=== PATIENT | female | born 1975 | race Caucasian/White ===

== ENCOUNTER 2018-01-12 03:02 | Inpatient (IN) | payer MEDICAID ==
[~2018-01-12] VITALS: Ht 179.1 cm; Wt 77.0 kg
[2018-01-12] MEDS ORDERED: ALBUTEROL/IPRATROPIUM 2.5MG/0.5MG, 3 ML NPPB ONE ×2 (03:30→05:00)
[2018-01-12] MEDS ORDERED: ALBUTEROL/IPRATROPIUM 2.5MG/0.5MG, 3 ML ONE ×2 (03:38→04:27)
[2018-01-12] MEDS ORDERED: ALBU0.63 NEB (03:47)
[2018-01-12 03:58] LABS: ALANINE AMINOTRANSFERASE 26 U/L (12-78); ALBUMIN 3.4 g/dL (3.4-5.0); ANION GAP 6 mmol/L (5-15); CALCIUM 8.9 mg/dL (8.5-10.1); CHLORIDE 109 mmol/L (98-107); CREATININE 0.85 mg/dL (0.55-1.02)
[2018-01-12 04:00] LABS: ALKALINE PHOSPHATASE 106 U/L (45-117); BILIRUBIN,TOTAL 0.3 mg/dL (0.2-1.0)
[2018-01-12 04:05] LABS: BASOPHILS # (AUTO) 0.05 x10^3/uL (0-0.1); BASOPHILS % (AUTO) 1 % (0-1); EOSINOPHILS # (AUTO) 0.15 x10^3/uL (0-0.4); EOSINOPHILS % (AUTO) 2 % (1-7); LYMPHOCYTES # (AUTO) 3.47 x10^3/uL (1-3.4); LYMPHOCYTES % (AUTO) 33 % (22-44); MD NO; MEAN CORPUSCULAR HEMOGLOBIN 33.9 pg (27.0-34.8); MEAN CORPUSCULAR HGB CONC 34.5 g/dL (32.4-35.8); MEAN CORPUSCULAR VOLUME 98.3 fL (80-100); MEAN PLATELET VOLUME 8.8 fL (7.4-10.4); MONOCYTES # (AUTO) 0.73 x10^3/uL (0.2-0.8); MONOCYTES % (AUTO) 7 % (2-9); NEUTROPHILS # (AUTO) 6.12 x10^3/uL (1.8-6.8); NEUTROPHILS % (AUTO) 58 % (42-75); PLATELET COUNT 261 x10^3/uL (130-400); RED BLOOD COUNT 4.88 x10^6/uL (3.82-5.3); RED CELL DISTRIBUTION WIDTH 14.5 % (9.6-15.2)
[2018-01-12] MEDS ORDERED: SODIUM CHLORIDE 0.9% 1,000 ML IV ONE (05:12)
[2018-01-12] MEDS ORDERED: ONDANSETRON 2MG/ML, 2ML IVPush PRN ×2 (05:30→06:30)
[2018-01-12] MEDS ORDERED: LORazepam 1MG TABLET PO PRN ×3 (06:30)
[2018-01-12] MEDS ORDERED: ENALAPRILAT 1.25 MG/ML, 2ML IVPush PRN (06:30)
[2018-01-12] MEDS ORDERED: morphine SULFATE 10 MG/ML, 1ML IVPush PRN (06:30)
[2018-01-12] MEDS ORDERED: OXYcodone IR 5MG TABLET PO PRN (06:30)
[2018-01-12] MEDS ORDERED: LORazepam 2 MG/ML, 1ML IV PRN ×5 (06:30)
[2018-01-12] MEDS: ALBUTEROL/IPRATROPIUM 2.5MG/0.5MG, 3 ML NPPB SCH ×4 (06:30→20:18)
[2018-01-12] MEDS ORDERED: ACETAMINOPHEN 325 MG TABLET PO PRN (06:30)
[2018-01-12] MEDS ORDERED: POLYETHYLENE GLYCOL 17 GM PACKET PO PRN (06:30)
[2018-01-12] MEDS ORDERED: BISACODYL 10 MG SUPP PR PRN (06:30)
[2018-01-12] MEDS ORDERED: CETIRIZINE 10 MG TABLET PO PRN (06:30)
[2018-01-12] MEDS ORDERED: hydrALAzine 20 MG/ML, 1ML IVPush PRN (06:30)
[2018-01-12 06:45] VITALS: BP 109/70
[2018-01-12] MEDS ORDERED: LEVO50TA5 PO (06:45)
[2018-01-12 06:56] LABS: THYROID STIMULATING HORMONE 12.4 mIU/L (0.358-3.740)
[2018-01-12 07:06] LABS: HEMOGLOBIN A1C 4.9 % (4.2-6.3)
[2018-01-12 07:22] VITALS: BP 109/70
[2018-01-12] MEDS: SODIUM CHLORIDE 0.9% 1,000 ML IV SCH ×2 (07:24→15:37)
[2018-01-12] MEDS: FLUTICASONE/VILANTEROL 200-25MCG/INH INH SCH (08:46)
[2018-01-12] MEDS: MULTIVITAMIN 1 TABLET PO SCH (08:46)
[2018-01-12] MEDS: HEPARIN 5,000 UNITS/ML, 1ML SQ SCH ×3 (08:46→23:37)
[2018-01-12] MEDS: methylPREDNISolone SOD SUCC 125 MG/2 ML IVPush SCH ×3 (08:46→20:14)
[2018-01-12] MEDS: NICOTINE 14MG/24 HR PATCH.TD24 TD SCH (08:46)
[2018-01-12] MEDS: LEVOTHYROXINE 50 MCG TABLET PO SCH (08:46)
[2018-01-12] MEDS: FAMOTIDINE 20 MG TABLET PO SCH (08:46)
[2018-01-12] MEDS: SENNA/DOCUSATE TABLET PO SCH (08:47)
[2018-01-12] MEDS: FLUTICASONE NASAL SPRAY 16GM NAS SCH ×2 (08:47→21:05)
[2018-01-12] MEDS: LORazepam 0.5MG TABLET PO PRN ×3 (09:37→21:06)
[2018-01-12 13:00] LABS: MICROSCOPIC NOT IND
[2018-01-12 13:06] LABS: CULTURE INDICATED? NO
[2018-01-12 14:30] VITALS: BP 133/69
[2018-01-12 20:12] VITALS: BP 116/78
[2018-01-12 20:32] VITALS: BP 129/86
[2018-01-13 00:51] VITALS: BP 133/89
[2018-01-13] MEDS: methylPREDNISolone SOD SUCC 125 MG/2 ML IVPush SCH ×4 (02:22→20:20)
[2018-01-13] MEDS: NICOTINE 14MG/24 HR PATCH.TD24 TD SCH (05:26)
[2018-01-13] MEDS: LEVOTHYROXINE 50 MCG TABLET PO SCH (05:26)
[2018-01-13 05:47] LABS: MEAN CORPUSCULAR HEMOGLOBIN 34.4 pg (27.0-34.8); MEAN CORPUSCULAR HGB CONC 34.5 g/dL (32.4-35.8); MEAN CORPUSCULAR VOLUME 99.6 fL (80-100); MEAN PLATELET VOLUME 9.1 fL (7.4-10.4); PLATELET COUNT 230 x10^3/uL (130-400); RED CELL DISTRIBUTION WIDTH 14.7 % (9.6-15.2)
[2018-01-13 05:51] LABS: ANION GAP 9 mmol/L (5-15); CALCIUM 8.6 mg/dL (8.5-10.1); CHLORIDE 113 mmol/L (98-107)
[2018-01-13 05:55] LABS: ALANINE AMINOTRANSFERASE 20 U/L (12-78); ALKALINE PHOSPHATASE 91 U/L (45-117); BILIRUBIN,TOTAL 0.3 mg/dL (0.2-1.0); CHOL/HDL RATIO 3.4; CHOLESTEROL, TOTAL 276 mg/dL (140-239); CREATININE 0.79 mg/dL (0.55-1.02); HDL CHOL % 29 % (28-40); HDL CHOLESTEROL (DIRECT) 81 mg/dL (40-60); LDL CHOLESTEROL,CALCULATED 174 mg/dL (54-169); LDL/HDL RATIO 2.1 (0.5-3.0); TOTAL PROTEIN 6.3 g/dL (6.4-8.2); TRIGLYCERIDES 103 mg/dL (50-200); VLDL CHOLESTEROL 21 mg/dL (0-25)
[2018-01-13 06:17] LABS: BASOPHILS # (AUTO) 0.02 x10^3/uL (0-0.1); BASOPHILS % (AUTO) 0 % (0-1); EOSINOPHILS # (AUTO) 0.01 x10^3/uL (0-0.4); EOSINOPHILS % (AUTO) 0 % (1-7); LYMPHOCYTES # (AUTO) 1.29 x10^3/uL (1-3.4); LYMPHOCYTES % (AUTO) 8 % (22-44); MD SCAN; MONOCYTES % (AUTO) 1 % (2-9); NEUTROPHILS # (AUTO) 14.61 x10^3/uL (1.8-6.8); NEUTROPHILS % (AUTO) 91 % (42-75)
[2018-01-13] MEDS: ALBUTEROL/IPRATROPIUM 2.5MG/0.5MG, 3 ML NPPB SCH ×4 (07:56→19:45)
[2018-01-13 08:02] VITALS: BP 124/80
[2018-01-13] MEDS: FAMOTIDINE 20 MG TABLET PO SCH (08:11)
[2018-01-13] MEDS: MULTIVITAMIN 1 TABLET PO SCH (08:12)
[2018-01-13] MEDS: SENNA/DOCUSATE TABLET PO SCH (08:12)
[2018-01-13] MEDS: HEPARIN 5,000 UNITS/ML, 1ML SQ SCH ×3 (08:12→23:33)
[2018-01-13] MEDS: FLUTICASONE NASAL SPRAY 16GM NAS SCH ×2 (08:13→20:20)
[2018-01-13] MEDS: FLUTICASONE/VILANTEROL 200-25MCG/INH INH SCH (08:13)
[2018-01-13] MEDS: LORazepam 0.5MG TABLET PO PRN ×3 (08:24→23:32)
[2018-01-13] MEDS: DOXYCYCLINE 100MG TABLET PO SCH ×2 (13:08→20:20)
[2018-01-13 14:00] VITALS: BP 109/68
[2018-01-13] MEDS: LORazepam 1MG TABLET PO PRN ×2 (14:33→19:00)
[2018-01-13 19:22] VITALS: BP 123/80
== END 2018-01-14 01:10 | disposition left against medical advice (07) | DRG 189 ==
LOC: ED 05:14 → EDIP 05:17 → 5SO 06:18 → 4EST 20:28
PROVIDERS: ADMIT Internal Medicine; ATTEND Internal Medicine
DX: J96.01 Acute respiratory failure with hypoxia (principal); J44.1 Chronic obstructive pulmonary disease with (acute) exacerbation; J45.901 Unspecified asthma with (acute) exacerbation; E03.9 Hypothyroidism, unspecified; F17.210 Nicotine dependence, cigarettes, uncomplicated; Z82.3 Family history of stroke; Z82.49 Family history of ischemic heart disease and other diseases of the circulatory system; Z88.8 Allergy status to other drugs, medicaments and biological substances
CPT/HCPCS: 36415; 71046; 80053; 80061; 80307; 81003; 83036; 83735; 84439; 84443; 85025; 87070; 87077; 87205; 93005; 94640; 99285; J1644; J7620; J2930; J7030; J7512

== ENCOUNTER 2018-10-11 20:20 | Emergency (ER) | payer MEDICAID ==
[~2018-10-11] VITALS: Ht 177.8 cm; Wt 79.4 kg
[~2018-10-11 20:20] MED LIST: ALBU0.63 NEB; LEVO50TA5 PO
[2018-10-11] MEDS ORDERED: ALBUTEROL SULFATE 2.5 MG/3 ML NPPB ONE (20:30)
[2018-10-11] MEDS ORDERED: ALBUTEROL SULFATE 2.5MG/0.5ML ONE (20:36)
[2018-10-11 21:10] LABS: ALBUMIN 3.7 g/dL (3.4-5.0); ANION GAP 9 mmol/L (5-15); CALCIUM 9.2 mg/dL (8.5-10.1); CHLORIDE 110 mmol/L (98-107); CREATININE 1.03 mg/dL (0.55-1.02)
[2018-10-11 21:26] LABS: MD YES; MEAN CORPUSCULAR HEMOGLOBIN 34.1 pg (27.0-34.8); MEAN CORPUSCULAR HGB CONC 34.6 g/dL (32.4-35.8); MEAN CORPUSCULAR VOLUME 98.5 fL (80-100); MEAN PLATELET VOLUME 9.8 fL (7.4-10.4); PLATELET COUNT 197 x10^3/uL (130-400); RED BLOOD COUNT 4.55 x10^6/uL (3.82-5.3); RED CELL DISTRIBUTION WIDTH 13.5 % (9.6-15.2)
[2018-10-11 21:28] LABS: ANISOCYTOSIS 1+; BANDS%(MANUAL) 4 % (0-7); HYPOCHROMIA 1+; LYMPHS% (MANUAL) 27 % (22-44); MONOS#(MANUAL) 0.17 x10^3/uL (0.3-2.7); MONOS% (MANUAL) 1 % (2-9); SEG#(MANUAL) 11.83 x10^3/uL (1.8-6.8); SEGS% (MANUAL) 68 % (42-75)
[2018-10-11 21:29] LABS: PMNS WITH VACUOLES 1+; TOXIC GRAN 1+
[2018-10-11 21:30] LABS: <PLATELET ESTIMATE> ADEQUATE; LARGE PLATELETS 1+
[2018-10-11 21:41] VITALS: BP 115/77
== END 2018-10-11 22:14 | disposition home or self-care (01) ==
LOC: ED 21:04
DX: J45.41 Moderate persistent asthma with (acute) exacerbation (principal); Z59.0 Homelessness
CPT/HCPCS: 36415; 71046; 80048; 82040; 85025; 94640; 99284; J7613

== ENCOUNTER 2018-11-07 18:41 | Emergency (ER) | payer MEDICAID ==
[~2018-11-07] VITALS: Ht 177.8 cm; Wt 75.7 kg
[2018-11-07] MEDS ORDERED: LORazepam 1MG TABLET ONE (18:59)
[2018-11-07] MEDS ORDERED: LORazepam 1MG TABLET PO ONE (19:00)
--- NOTE | 2018-11-07 19:10 | NUR ---
SANCHEZ RN: THIS IS A 43 YO FEMALE WHO PRESENTS TO THE ER C/O COUGH/CONGESTION AND THOUGHTS OF SI. PT REPORTS THAT SHE HAS RECENTLY STARTED GOING TO A NEW "PSYCHIATRIST I GUESS, I DON'T KNOW WHAT SHE IS BUT I DON'T TRUST HER. SHE DIAGNOSED ME WITH BIPOLAR AND CHANGED MY MEDS. SHE TOOK ME OFF MY PROZAC, WHICH I FELT GOOD ON." PT REPORTS SHE QUIT TAKING ALL OF HER MEDICATIONS APART FROM THE SYNTHROID APPROX 1 WEEK AGO. PT REPORTS THAT HER PLAN IS "I DON'T KNOW I KEEP TRYING TO JUST SURVIVE THE THOUGHTS, BUT I'LL SEE A POND AND THINK 'I COULD DROWN MYSELF'". PT PROVIDED URINE SAMPLE. PT APPEARS CALM AND COOPERATIVE AT THIS TIME. VERY TALKATIVE. PT'S BELONGINGS PLACED IN BAG AND PUT IN LOCKED LOCKER. GARAGE DOORS DOWN IN ROOM. SITTER AT DOORSIDE. REPORT TO PRIMARY RN COSTA WHO ASSUMED CARE OF PT.
[2018-11-07 19:14] LABS: BASOPHILS # (AUTO) 0.15 x10^3/uL (0-0.1); BASOPHILS % (AUTO) 1 % (0-1); EOSINOPHILS # (AUTO) 0.25 x10^3/uL (0-0.4); EOSINOPHILS % (AUTO) 2 % (1-7); LYMPHOCYTES % (AUTO) 28 % (22-44); MD NO; MEAN CORPUSCULAR HEMOGLOBIN 33.2 pg (27.0-34.8); MEAN CORPUSCULAR HGB CONC 34.4 g/dL (32.4-35.8); MEAN CORPUSCULAR VOLUME 96.6 fL (80-100); MEAN PLATELET VOLUME 8.9 fL (7.4-10.4); MONOCYTES # (AUTO) 0.85 x10^3/uL (0.2-0.8); MONOCYTES % (AUTO) 7 % (2-9); NEUTROPHILS # (AUTO) 7.38 x10^3/uL (1.8-6.8); NEUTROPHILS % (AUTO) 61 % (42-75); PLATELET COUNT 293 x10^3/uL (130-400); RED BLOOD COUNT 4.56 x10^6/uL (3.82-5.3); RED CELL DISTRIBUTION WIDTH 13.3 % (9.6-15.2)
[2018-11-07 19:16] LABS: MICROSCOPIC INDICATED
[2018-11-07 19:17] LABS: HCG UR SG 1.028 (1.003-1.030)
[2018-11-07 19:26] LABS: ALBUMIN 3.5 g/dL (3.4-5.0); ANION GAP 6 mmol/L (5-15); CALCIUM 9.1 mg/dL (8.5-10.1); CHLORIDE 112 mmol/L (98-107); SALICYLATE LEVEL 4.8 mg/dL (2.8-20.0)
[2018-11-07] MEDS ORDERED: ALBUTEROL/IPRATROPIUM 2.5MG/0.5MG, 3 ML ONE (19:26)
[2018-11-07 19:28] LABS: CULTURE INDICATED? NO
[2018-11-07 19:29] LABS: AMPHETAMINE SCREEN, URINE Negative (Negative); BARBITURATE SCREEN, URINE Negative (Negative); BENZODIAZEPINE SCREEN, URINE Negative (Negative); CANNABINOID SCREEN, URINE Negative (Negative); COCAINE SCREEN, URINE Negative (Negative); METHADONE SCREEN, URINE Negative (Negative); OPIATE SCREEN, URINE Negative (Negative)
[2018-11-07] MEDS ORDERED: ALBUTEROL/IPRATROPIUM 2.5MG/0.5MG, 3 ML NPPB ONE (19:30)
[2018-11-07 19:33] LABS: ALANINE AMINOTRANSFERASE 20 U/L (12-78); ALKALINE PHOSPHATASE 70 U/L (45-117); BILIRUBIN,TOTAL 0.3 mg/dL (0.2-1.0); CREATININE 0.85 mg/dL (0.55-1.02); TOTAL PROTEIN 6.7 g/dL (6.4-8.2)
[2018-11-07 19:41] LABS: ACETAMINOPHEN < 2 mcg/mL (10-30)
--- NOTE | 2018-11-07 19:59 | NUR ---
PT RESTING COMFORTABLY ON GURNEY. RR EVEN AND UNLABORED. NADN. ROLLER DOORS IN PLACE. SITTER IN HALLWAY.
[2018-11-07 20:38] VITALS: BP 138/70
--- NOTE | 2018-11-07 20:40 | NUR ---
PT DENIES CURRENT SI AT THIS TIME. AWARE. STATING FEELING "MUCH BETTER" AFTER DUONEB AND PREDNISONE.
== END 2018-11-07 21:13 | disposition home or self-care (01) ==
LOC: ED 19:13
DX: J44.1 Chronic obstructive pulmonary disease with (acute) exacerbation (principal); E11.9 Type 2 diabetes mellitus without complications; J45.909 Unspecified asthma, uncomplicated; F17.200 Nicotine dependence, unspecified, uncomplicated; Z88.8 Allergy status to other drugs, medicaments and biological substances
CPT/HCPCS: 36415; 71045; 80053; 80307; 80329; 81001; 81025; 84703; 85025; 93005; 94640; 99284; J7512; J7620; G0480

== ENCOUNTER 2019-08-23 23:23 | Emergency (ER) | payer MEDICAID ==
[~2019-08-23] VITALS: Ht 177.8 cm; Wt 91.9 kg
[2019-08-23] MEDS ORDERED: ALBUTEROL/IPRATROPIUM 2.5MG/0.5MG, 3 ML ONE (23:43)
--- NOTE | 2019-08-23 23:45 | NUR ---
RT TO BEDSIDE, VERY PLEASANT LADY, ENCOURAGED TO QUIT SMOKING.
[2019-08-23 23:56] LABS: BASOPHILS # (AUTO) 0.03 x10^3/uL (0-0.1); BASOPHILS % (AUTO) 0 % (0-1); EOSINOPHILS # (AUTO) 0.42 x10^3/uL (0-0.4); EOSINOPHILS % (AUTO) 4 % (1-7); LYMPHOCYTES # (AUTO) 2.74 x10^3/uL (1-3.4); LYMPHOCYTES % (AUTO) 24 % (22-44); MD NO; MEAN CORPUSCULAR HEMOGLOBIN 34.8 pg (27.0-34.8); MEAN CORPUSCULAR HGB CONC 34.2 g/dL (32.4-35.8); MEAN CORPUSCULAR VOLUME 101.5 fL (80-100); MEAN PLATELET VOLUME 8.8 fL (7.4-10.4); MONOCYTES # (AUTO) 0.96 x10^3/uL (0.2-0.8); MONOCYTES % (AUTO) 8 % (2-9); NEUTROPHILS # (AUTO) 7.45 x10^3/uL (1.8-6.8); NEUTROPHILS % (AUTO) 64 % (42-75); PLATELET COUNT 227 x10^3/uL (130-400); RED BLOOD COUNT 4.55 x10^6/uL (3.82-5.3)
[2019-08-24] MEDS ORDERED: ALBUTEROL/IPRATROPIUM 2.5MG/0.5MG, 3 ML NEB ONE
[2019-08-24 00:10] LABS: ALANINE AMINOTRANSFERASE 21 U/L (12-78); ALBUMIN 3.8 g/dL (3.4-5.0); ANION GAP 6 mmol/L (5-15); CALCIUM 9.1 mg/dL (8.5-10.1); CHLORIDE 109 mmol/L (98-107); CREATININE 0.92 mg/dL (0.55-1.02)
[2019-08-24 00:14] LABS: ALKALINE PHOSPHATASE 64 U/L (45-117); BILIRUBIN,TOTAL 0.2 mg/dL (0.2-1.0); TOTAL PROTEIN 6.9 g/dL (6.4-8.2); TROPONIN I < 0.015 ng/mL (0.000-0.045)
[2019-08-24 01:18] VITALS: BP 120/76
== END 2019-08-24 01:33 | disposition home or self-care (01) ==
LOC: ED 23:44
DX: J44.1 Chronic obstructive pulmonary disease with (acute) exacerbation (principal); F17.200 Nicotine dependence, unspecified, uncomplicated
CPT/HCPCS: 36415; 71045; 80053; 84484; 85025; 93005; 94640; 99284; J7512; J7620

== ENCOUNTER 2020-06-23 05:16 | Emergency (ER) | payer MEDICAID ==
[~2020-06-23] VITALS: Ht 177.8 cm; Wt 101.4 kg
--- NOTE | 2020-06-23 05:49 | NUR ---
Patient presents to ER c/o left side shoulder pain radiating into center of chest. Patient states she has slight SOB as well and has had CP from breathing before but this feels different. Denies N/V. Patient is in NAD. Respirations even and unlabored.
[2020-06-23 06:22] LABS: BASOPHILS # (AUTO) 0.07 x10^3/uL (0-0.1); BASOPHILS % (AUTO) 1 % (0-1); EOSINOPHILS # (AUTO) 0.22 x10^3/uL (0-0.4); EOSINOPHILS % (AUTO) 2 % (1-7); LYMPHOCYTES # (AUTO) 2.04 x10^3/uL (1-3.4); LYMPHOCYTES % (AUTO) 21 % (22-44); MD NO; MEAN CORPUSCULAR HEMOGLOBIN 34.8 pg (27.0-34.8); MEAN CORPUSCULAR HGB CONC 34.2 g/dL (32.4-35.8); MEAN CORPUSCULAR VOLUME 101.5 fL (80-100); MEAN PLATELET VOLUME 8.8 fL (7.4-10.4); MONOCYTES # (AUTO) 0.85 x10^3/uL (0.2-0.8); MONOCYTES % (AUTO) 9 % (2-9); NEUTROPHILS # (AUTO) 6.77 x10^3/uL (1.8-6.8); NEUTROPHILS % (AUTO) 68 % (42-75); PLATELET COUNT 217 x10^3/uL (130-400); RED BLOOD COUNT 3.99 x10^6/uL (3.82-5.3); RED CELL DISTRIBUTION WIDTH 13.7 % (9.6-15.2)
[2020-06-23 06:35] LABS: ALANINE AMINOTRANSFERASE 43 U/L (12-78); ALBUMIN 3.3 g/dL (3.4-5.0); ANION GAP 8 mmol/L (5-15); CALCIUM 8.9 mg/dL (8.5-10.1); CHLORIDE 111 mmol/L (98-107); CREATININE 0.86 mg/dL (0.55-1.02)
[2020-06-23 06:39] VITALS: BP 140/82
[2020-06-23 06:39] LABS: ALKALINE PHOSPHATASE 85 U/L (45-117); BILIRUBIN,TOTAL 0.4 mg/dL (0.2-1.0); TOTAL PROTEIN 6.7 g/dL (6.4-8.2); TROPONIN I < 0.015 ng/mL (0.000-0.045)
--- NOTE | 2020-06-23 06:44 | NUR ---
Report to PONCHO Tolbert. Patient care transferred.
== END 2020-06-23 08:21 | disposition home or self-care (01) ==
LOC: ED 06:22
DX: J45.41 Moderate persistent asthma with (acute) exacerbation (principal); R07.9 Chest pain, unspecified
CPT/HCPCS: 36415; 71045; 80053; 84484; 85025; 85379; 93005; 99285